=== PATIENT | male | born 1975 | race Caucasian/White ===

== ENCOUNTER 2020-01-02 07:58 | Emergency (ER) | payer BC, OTHER ==
[~2020-01-02] VITALS: Ht 170.2 cm; Wt 74.8 kg
--- OUTSIDE RECORDS SUMMARY | ~2020-01-02 | XMS | Encounter Summary ---
Demographics + + + | Address | [address] | | | [place] [address] | + + + | Home Phone | | + + + | Preferred Language | Unknown | + + + | Marital Status | | + + + | Christian Affiliation | Unknown | + + + | Race | Unknown | + + + | Ethnic Group | Unknown | + + + Author + + + | Author | [facility] | | | and [place] | + + + | Organization | [facility] | | | and [place] | + + + | Address | Unknown | + + + | Phone | Unavailable | + + + Support + + +---------+ + | Name | Relationship | Address | Phone | + + +---------+ + | Mariella Word | ECON | Unknown | | + + +---------+ + Care Team Providers + +------+ + | Care Loss Control Manager Name | Role | Phone | + +------+ + | Jeffery Anand DO | PCP | | + +------+ + Reason for Referral Evaluate & Treat (Routine) +--------+ + + + + + | Status | Reason | Specialty | Diagnoses / | Referred By | Referred To | | | | | Procedures | Contact | Contact | +--------+ + + + + + | Closed | Specialty | Physical | Diagnoses | Cheng, | Ant, | | | Services | Medicine and | DDD | Jeffery Das, | William Garcia MD | | | Required | Rehabilitatio | (degenerativ | DO [address] | [address] | | | | n | e disc | [address] | [address] [place] | | | | | disease), | [place], [place] | [place] | | | | | lumbar | [address] | [address] Phone: | | | | | | Phone: | [phone] | | | | | | [phone] | Fax: | | | | | | Fax: | [phone] | | | | | | [phone] | | +--------+ + + + + + + + | Scheduling Instructions | + + | Please send MRI and notes w/ referral | + + Reason for Visit + + + | Reason | Comments | + + + | Medication Refill | | + + + | Referral | | + + + Encounter Details +--------+--------+ + + + | Date | Type | Department | Care Team | Description | +--------+--------+ + + + | 04/29/ | Refill | [facility] | Jeffery Anand | Medication Refill; | | 2018 | | [facility] | E, DO [address] | Referral | | | | [facility] | [place], [place] | | | | | [address] [place], | [address] | | | | | [place] [address] | [phone] | | | | | [phone] | | | +--------+--------+ + + + Social History + +--------+ +--------+------+ | Tobacco Use | Types | Packs/Day | Years | Date | | | | | Used | | + +--------+ +--------+------+ | Light Tobacco Smoker | Cigars | | | | + +--------+ +--------+------+ + +---+---+---+ | Smokeless Tobacco: | | | | | Never Used | | | | + +---+---+---+ + + | Comments: Twice a week if that | + + + + +---------+ + | Alcohol Use | Drinks/Week | oz/Week | Comments | + + +---------+ + | No | | | Beer consumption | | | | | 6pk/wk, stopped | | | | | 01/2016 | + + +---------+ + + + + | Sex Assigned at | Date Recorded | | | | + + + | Not on file | | + + + + + + + | Job Start Date | Occupation | Industry | + + + + | Not on file | Not on file | Not on file | + + + + + + + + | Travel History | Travel Start | Travel End | + + + + + + | No recent travel history available. | + + documented as of this encounter Plan of Treatment + + +--------+ + + | Name | Type | Priori | Associated Diagnoses | Order Schedule | | | | ty | | | + + +--------+ + + | * [facility] | Outpatient | Routin | DDD (degenerative | Ordered: 04/29/2019 | | Physiatry - AMB | Referral | e | disc disease), | | | Referral | | | lumbar | | + + +--------+ + + documented as of this encounter Visit Diagnoses + + | Diagnosis | + + | DDD (degenerative disc disease), lumbar - Primary Degeneration of lumbar or | | lumbosacral intervertebral disc | + + documented in this encounter"
--- OUTSIDE RECORDS SUMMARY | ~2020-01-02 | XMS | Encounter Summary ---
Demographics + + + | Address | [address] | | | [place] [address] | + + + | Home Phone | | + + + | Preferred Language | Unknown | + + + | Marital Status | | + + + | Buddhism Affiliation | Unknown | + + + | Race | Unknown | + + + | Ethnic Group | Unknown | + + + Author + + + | Author | [facility] | | | and [place] | + + + | Organization | [facility] | | | and [...] Team Providers + +------+ + | Care President [place] Name | Role | Phone | + +------+ + | Jeffery Anand DO | PCP | | + +------+ + Reason for Visit + + + | Reason | Comments | + + + | Medication Refill | | + + + Encounter Details +--------+--------+ + + + | Date | Type | Department | Care Team | Description | +--------+--------+ + + + | 08/24/ | Refill | [facility] | Jeffery Anand | Medication Refill | | 2019 | | [facility] | E, DO [address] | | | | | [facility] CL[facility] | [place], [place] | | | | | [address] [place], | [address] | | | | | [place] [address] | [phone] | | | | | [phone] | | | +--------+--------+ + + + [...] as of this encounter Plan of Treatment Not on filedocumented as of this encounter Visit Diagnoses Not on filedocumented in this encounter"
--- OUTSIDE RECORDS SUMMARY | ~2020-01-02 | XMS | Clinical Summary ---
Demographics + + + | Address | [address] | | | [place] [address] | + + + | Home Phone | | + + + | Preferred Language | Unknown | + + + | Marital Status | | + + + | Restorationism Affiliation | Unknown | + + + | Race | Unknown | + + + | Ethnic Group | Unknown | + + + Author + + + | Author | [facility] | | | and [place] | + + + | Organization | [facility] | | | and [...] Team Providers + +------+ + | Care Coffee Brewer Name | Role | Phone | + +------+ + | Jeffery Anand DO | PCP | | + +------+ + Allergies + + + + + + | Active Allergy | Reactions | Severity | Noted | Comments | | | | | Date | | + + + + + + | Amoxicillin | Other (See Comments) | High | 04/04/20 | Suicidal ideation | | | | | 20 | and anger/Possible | | | | | | side effect when | | | | | | used with Gabapentin | + + + + + + | Uncoded | Other (See Comments) | | 04/09/20 | Flu Vaccine, 5-6 | | Nonscreenable | | | 18 | years ago felt like | | Allergen | | | | he had a bad flu | | | | | | within 1-2 days | + + + + + + Medications + + + +---------+------+------+-------+ | Medication | Sig | Dispensed | Refills | Star | End | Statu | | | | | | t | Date | s | | | | | | Date | | | + + + +---------+------+------+-------+ | DiphenhydrAMINE | Take by mouth as | | 0 | | | Activ | | HCl (BENADRYL | needed. | | | | | e | | ALLERGY PO) | | | | | | | + + + +---------+------+------+-------+ | Naproxen Sodium | Take by mouth. 1 | | 0 | | | Activ | | (ALEVE) 220 MG CAPS | tablet four times a | | | | | e | | | week | | | | | | + + + +---------+------+------+-------+ | Acetaminophen | Take by mouth as | | 0 | | | Activ | | (TYLENOL EXTRA | needed. | | | | | e | | STRENGTH PO) | | | | | | | + + + +---------+------+------+-------+ | meloxicam (MOBIC) | Take 1 tablet by | 30 | 1 | 03/1 | | Activ | | 15 mg | mouth Daily as | tablet | | 8/20 | | e | | tabletIndications: | needed for Pain. | | | 19 | | | | DDD (degenerative | | | | | | | | disc disease), | | | | | | | | lumbar | | | | | | | + + + +---------+------+------+-------+ | tiZANidine | Take 1 tablet by | 30 | 0 | 10/12 | | Activ | | (ZANAFLEX) 4 mg | mouth nightly as | tablet | | 8/20 | | e | | tabletIndications: | needed. | | | 19 | | | | DDD (degenerative | | | | | | | | disc disease), | | | | | | | | lumbar | | | | | | | + + + +---------+------+------+-------+ | gabapentin | Take 1 capsule by | 180 | 3 | 04/14 | | Activ | | (NEURONTIN) 100 mg | mouth 2 times daily. | capsule | | 6/20 | | e | | capsule | | | | 19 | | | + + + +---------+------+------+-------+ Active Problems + + + | Problem | Noted Date | + + + | Overanxious disorder | | + + + | Alcohol dependence in remission | | + + + Encounters +--------+ + + + + | Date | Type | Specialty | Care Team | Description | +--------+ + + + + | 01/01/ | Telephone | Primary Care | Jeffery Anand | Chest Pain | | 2019 | | | E, DO | | +--------+ + + + + from Last 3 Months Immunizations + + + + | Name | Administration Dates | Next Due | + + + + | HEP A, 2 DOSE | 08/08/2012 | | | (PED/ADOL) | | | + + + + | INFLUENZA PF 20 Y OR | 05/15/2018 | | | >,TRIVALENT | | | | RECOMBINANT | | | + + + + | INFLUENZA PF | 05/15/2018, 06/14/2016 | | | QUAD(PED/ADOL/ADULT) | | | | ,PSKT or VIAL | | | + + + + | TDAP, (ADOL/ADULT) | 01/01/2018, 01/06/2012 | | + + + + Family History + + +------+ + | Medical History | Relation | Name | Comments | + + +------+ + | Anxiety disorder | Father | | | + + +------+ + | Hypertension | Father | | | + + +------+ + | No known problems | Maternal | | | | | Grandfath | | | | | er | | | + + +------+ + | No known problems | Maternal | | | | | Grandmoth | | | | | er | | | + + +------+ + | No known problems | Mother | | | + + +------+ + | No known problems | Paternal | | | | | Grandfath | | | | | er | | | + + +------+ + | No known problems | Paternal | | | | | Grandmoth | | | | | er | | | + + +------+ + + +------+--------+ + | Relation | Name | Status | Comments | + +------+--------+ + | Father | | | | + +------+--------+ + | Maternal Grandfather | | | | + +------+--------+ + | Maternal Grandmother | | | | + +------+--------+ + | Mother | | | | + +------+--------+ + | Paternal Grandfather | | | | + +------+--------+ + | Paternal Grandmother | | | | + +------+--------+ + Social History + +--------+ +--------+------+ | Tobacco Use | Types | Packs/Day | Years | Date | | | | | Used | | + +--------+ +--------+------+ | Light Tobacco Smoker | Cigars | | | | + +--------+ +--------+------+ + +---+---+---+ | Smokeless Tobacco: | | | | | Never Used | | | | + +---+---+---+ + + | Tobacco Cessation: Ready to Quit: No; Counseling Given: Yes | | Comments: Twice a week if that | + + + + +---------+ + | Alcohol Use | Drinks/Week | oz/Week | Comments | + + +---------+ + | No | | | | + + +---------+ + + + [...] recent travel history available. | + + Last Filed Vital Signs + + + + + | Vital Sign | Reading | Time Taken | Comments | + + + + + | Blood Pressure | 130/70 | 05/16/2019 8:01 AM | | | | | PDT | | + + + + + | Pulse | 54 | 05/16/2019 8:01 AM | | | | | PDT | | + + + + + | Temperature | 37.1 C (98.7 F) | 04/09/2018 4:25 PM | | | | | PDT | | + + + + + | Respiratory Rate | 17 | 10/29/2018 3:35 PM | | | | | PDT | | + + + + + | Oxygen Saturation | 98% | 10/29/2018 3:35 PM | | | | | PDT | | + + + + + | Inhaled Oxygen | - | - | | | Concentration | | | | + + + + + | Weight | 74.5 kg (164 lb 3.9 | 05/16/2019 8:01 AM | | | | oz) | PDT | | + + + + + | Height | 165.1 cm (5' 5") | 05/16/2019 8:01 AM | | | | | PDT | | + + + + + | Body Mass Index | 27.33 | 05/16/2019 8:01 AM | | | | | PDT | | + + + + + Plan of Treatment + + + + + | Health Maintenance | Due Date | Last Done | Comments | + + + + + | Vaccine: | | | | | Pneumococcal 19-64 | 4 | | | | (1 of 1 - PPSV23) | | | | + + + + + | Primary Care | | 05/16/2019, 10/29/2018, | | | Outreach (Intense | 0 | 04/09/2018 | | | Risk) | | | | + + + + + | Vaccine: Influenza | | 05/15/2018, 05/15/2018, | | | (Season Ended) | 0 | 06/14/2016, Additional history | | | | | exists | | + + + + + | Vaccine: | | 01/01/2018, 01/06/2012 | | | Dtap/Tdap/Td (3 - | 8 | | | | Td) | | | | + + + + + Results Not on filefrom Last 3 Months Insurance + +--------+ +--------+ +---------+------+ | Payer | Benefi | Subscriber | Effect | Phone | Address | Type | | | t Plan | ID | willis | | | | | | / | | Dates | | | | | | Group | | | | | | + +--------+ +--------+ +---------+------+ | [place] | [id number] | 10/13/19 | [phone] | | [place] | | [place] | | 17-Pre | 9 | | | | | | | sent | | | | + +--------+ +--------+ +---------+------+ | BCBS | BCBS | [id number] | 10/13/19 | | | PPO | | | FEDERA | | 17-Pre | | | | | | L FEP | | sent | | | | + +--------+ +--------+ +---------+------+ | [employer] [facility] | PHP | [id number] | 08/14/19 | [phone] | | PPO | | PLAN | PEBB | | 19-Pre | 5 | | | | | STATEW | | sent | | | | | | MIHIR | | | | | | + +--------+ +--------+ +---------+------+ | [employer] [facility] | PHP | [id number] | 08/14/19 | [phone] | | PPO | | PLAN | PEBB | | 18-Pre | 5 | | | | | STATEW | | sent | | | | | | MIHIR | | | | | | + +--------+ +--------+ +---------+------+ + +--------+ +--------+ + + | Guarantor Name | Accoun | Relation to | Date | Phone | Billing Address | | | t Type | Patient | of | | | | | | | | | | + +--------+ +--------+ + + | Gary Sauceda | Person | Self | [birth year] | [address] | | | al/Fam | | [phone] | [phone] | [place] [address] | | | renée | | | 5 (Home) | | + +--------+ +--------+ + + | KomalGary | Person | Self | [birth year] | | [address] | | | al/Fam | | [phone] | [phone] | [place] [address] | | | renée | | | 5 (Home) | | + +--------+ +--------+ + + Advance Directives + + + + + | Type | Date Recorded | Patient | Explanation | | | | Cheesemaking Laborer | | + + + + + | Power of | | | | | Mortgage Loan Processor | | | | + + + + + | Advance | 04/09/2018 4:11 | | | | Directive | PM | | | + + + + +
--- OUTSIDE RECORDS SUMMARY | ~2020-01-02 | XMS | Encounter Summary ---
Demographics + + + | Address | [address] | | | [place] [address] | + + + | Home Phone | | + + + | Preferred Language | Unknown | + + + | Marital Status | | + + + | Zoroastrianism Affiliation | Unknown | + + + | Race | Unknown | + + + | Ethnic Group | Unknown | + + + Author + + + | Author | [facility] | | | and [place] | + + + | Organization | [facility] | | | and [...] Team Providers + +------+ + | Care Mysql Database Developer Name | Role | Phone | + +------+ + | Jeffery Anand DO | PCP | | + +------+ + Reason for Referral Self-referral (Routine) +--------+ + + + + + | Status | Reason | Specialty | Diagnoses / | Referred By | Referred To | | | | | Procedures | Contact | Contact | +--------+ + + + + + | Closed | Specialty | Physical | Diagnoses | [facility] | | | Services | Therapy | DDD | Jeffery Das, | HOSPITAL | | | Required | | (degenerativ | DO [address] | | | | | e disc | [address] | [place] | | | | | disease), | [place], [place] | [place], [place] | | | | | lumbar | [address] | [address] | | | | | | Phone: | Phone: | | | | | | [phone] | [phone] | | | | | | Fax: | Fax: | | | | | | [phone] | [phone] | +--------+ + + + + + Reason for Visit +---------+ + | Reason | Comments | +---------+ + | Results | | +---------+ + Encounter Details +--------+ + + + + | Date | Type | Department | Care Team | Description | +--------+ + + + + | 11/19/ | Telephone | [facility] | Fatuma Nolan CC | Results | | 2019 | | [facility] | [facility] | | | | | MEDICAL CLIN[facility] [address] | | | | | | [address] [facility], | | | | | | [place] [address] | | | | | | [phone] | | | +--------+ + + + + Social History + +--------+ [...] | + + +--------+ + + | Physical Therapy - | Outpatient | Routin | DDD (degenerative | Ordered: 11/20/2018 | | Ambulatory Referral | Referral | e | disc disease), | | | | | | lumbar | | + + +--------+ + + documented as of this encounter Visit Diagnoses + + | Diagnosis | + + | DDD (degenerative disc disease), lumbar - Primary Degeneration of lumbar or | | lumbosacral intervertebral disc | + + documented in this encounter"
--- OUTSIDE RECORDS SUMMARY | ~2020-01-02 | XMS | Encounter Summary ---
Demographics + + + | Address | [address] | | | [place] [address] | + + + | Home Phone | | + + + | Preferred Language | Unknown | + + + | Marital Status | | + + + | Baptist Affiliation | Unknown | + + + | Race | Unknown | + + + | Ethnic Group | Unknown | + + + Author + + + | Author | [facility] | | | and [place] | + + + | Organization | [facility] | | | and [...] Team Providers + +------+ + | Care Drier Tender Naphthalene Name | Role | Phone | + +------+ + | Jeffery Anand DO | PCP | | + +------+ + Encounter Details +--------+ + + + + | Date | Type | Department | Care Team | Description | +--------+ + + + + | 04/04/ | Abstract | [facility] | Jeffery Anand | | | 2018 | | [facility] | E, DO [address] | | | | | MEDICAL CL[facility] [address] | [place], [place] | | | | | [address] [place], | [address] | | | | | [place] [address] | [phone] | | | | | [phone] | | | +--------+ + + + + Social History + +-------+ +--------+------+ | Tobacco Use | Types | Packs/Day | Years | Date | | | | | Used | | + +-------+ +--------+------+ | Never Smoker | | | | | + +-------+ +--------+------+ + +---+---+---+ | Smokeless Tobacco: | | | | | Never Used | | | | + +---+---+---+ + + +---------+ + | Alcohol Use [...]
--- OUTSIDE RECORDS SUMMARY | ~2020-01-02 | XMS | Encounter Summary ---
Demographics + + + | Address | [address] | | | [place] [address] | + + + | Home Phone | | + + + | Preferred Language | Unknown | + + + | Marital Status | | + + + | Mandaeism Affiliation | Unknown | + + + | Race | Unknown | + + + | Ethnic Group | Unknown | + + + Author + + + | Author | [facility] | | | and [place] | + + + | Organization | [facility] | | | and [...] Team Providers + +------+ + | Care Court Advocate Name | Role | Phone | + [...] Description | +--------+--------+ + + + | 03/11/ | Refill | [facility] | Jeffery Anand | Medication Refill | | 2019 | | [facility] | E, DO [address] | | | | | MEDICAL CL[facility] [address] | [place], [place] | | | | | [address] [place], | [address] | | | | | [place] [address] | [phone] | | | | | [phone] | | | +--------+--------+ + + + [...]
--- OUTSIDE RECORDS SUMMARY | ~2020-01-02 | XMS | Encounter Summary ---
Demographics + + + | Address | [address] | | | [place] [address] | + + + | Home Phone | | + + + | Preferred Language | Unknown | + + + | Marital Status | | + + + | Uatsdin Affiliation | Unknown | + + + | Race | Unknown | + + + | Ethnic Group | Unknown | + + + Author + + + | Author | [facility] | | | and [place] | + + + | Organization | [facility] | | | [...] Team Providers + +------+ + | Care Residential Program Manager Name | Role | Phone | + +------+ + | Jeffery Anand DO | PCP | | + +------+ + Encounter Details +--------+ + + + + | Date | Type | Department | Care Team | Description | +--------+ + + + + | 05/02/ | Imaging | [facility] | Provider, | | | 2019 | Exam | [facility] | [address] | | | | | IM[address] | [address] | | | | | [place] | [place] [address] | | | | | [place] [address] | | | | | | [phone] | | | +--------+ + + + [...] Not on filedocumented as of this encounter Procedures + +--------+ + + + | Procedure Name | Priori | Date/Time | Associated Diagnosis | Comments | | | ty | | | | + +--------+ + + + | XR LUMBAR SPINE 4 + | Routin | 09/03/2018 | | Results for this | | VW | e | 12:00 AM | | procedure are in the | | | | PST | | results section. | + +--------+ + + + documented in this encounter Results XR Lumbar Spine 4 + Vw (09/03/2018 12:00 AM PST) + + | Specimen | + + | | + + + + + | Narrative | Performed At | + + + | External films for comparison only | [facility] | | | | | No results will be in the chart. | | + + + + +---------+ + + | Performing | Address | City/State/Zipcode | Phone Number | | Organization | | | | + +---------+ + + | [facility] | | | | + +---------+ + + documented in this encounter Visit Diagnoses Not on filedocumented in this encounter"
--- OUTSIDE RECORDS SUMMARY | ~2020-01-02 | XMS | Encounter Summary ---
Demographics + + + | Address | [address] | | | [place] [address] | + + + | Home Phone | | + + + | Preferred Language | Unknown | + + + | Marital Status | | + + + | Lutheran Affiliation | Unknown | + + + | Race | Unknown | + + + | Ethnic Group | Unknown | + + + Author + + + | Author | [facility] | | | and [place] | + + + | Organization | [facility] | | | and [...] Team Providers + +------+ + | Care Rock Mason Name | Role | Phone | + +------+ + | Jeffery Anand DO | PCP | | + +------+ + Reason for Visit + + + | Reason | Comments | + + + | Referral | Needs a new referral for physical therapy | + + + Encounter Details +--------+ + + + + | Date | Type | Department | Care Team | Description | +--------+ + + + + | 01/09/ | Telephone | [facility] | Jeffery Anand | Referral (Needs a | | 2019 | | [facility] | E, DO [address] | new referral for | | | | MEDICAL CL[facility] [address] | [place], [place] | physical therapy) | | | | [address] [place], | [address] | | | | | [place] [address] | [phone] | | | | | [phone] | | | +--------+ + + + [...]
--- OUTSIDE RECORDS SUMMARY | ~2020-01-02 | XMS | Encounter Summary ---
Demographics + + + | Address | [address] | | | [place] [address] | + + + | Home Phone | | + + + | Preferred Language | Unknown | + + + | Marital Status | | + + + | Taoism Affiliation | Unknown | + + + | Race | Unknown | + + + | Ethnic Group | Unknown | + + + Author + + + | Author | [facility] | | | and [place] | + + + | Organization | [facility] | | | [...] Team Providers + +------+ + | Care Mandarin Tutor Name | Role | Phone | + [...] | [facility] CTR [facility] | [address] | | | | | IMAGING [address] | [address] | | | | | [place] | [place] [address] | | | | | [place] [address] | | | | | | [phone] | | | +--------+ + + + [...] | + +--------+ + + + | MRI LUMBAR SPINE WO | Routin | 11/16/2018 | | Results for this | | CONTRAST | e | 12:00 AM | | procedure are in the | | | | PDT | | results section. | + +--------+ + + + documented in this encounter Results MRI Lumbar Spine wo Contrast (11/16/2018 12:00 AM PDT) + + | Specimen | + + [...]
--- OUTSIDE RECORDS SUMMARY | ~2020-01-02 | XMS | Encounter Summary ---
Demographics + + + | Address | [address] | | | [place] [address] | + + + | Home Phone | | + + + | Preferred Language | Unknown | + + + | Marital Status | | + + + | Anabaptist Affiliation | Unknown | + + + [...] Team Providers + +------+ + | Care Produce Wrapper Name | Role | Phone | + [...] | | [address] [place], | [address] | | | | | [place] [address] | [phone] | | | | | [phone] | | | +--------+ + + + [...]
--- OUTSIDE RECORDS SUMMARY | ~2020-01-02 | XMS | Encounter Summary ---
Demographics + + + | Address | [address] | | | [place] [address] | + + + | Home Phone | | + + + | Preferred Language | Unknown | + + + | Marital Status | | + + + | Yazidi Affiliation | Unknown | + + + | Race | Unknown | + + + | Ethnic Group | Unknown | + + + Author + + + | Author | [facility] | | | and [place] | + + + | Organization | [facility] | | [...] Team Providers + +------+ + | Care Technical Solutions Engineer Name | Role | Phone | + [...] | [facility] | [address] | | | | | IMAGING [address] | [address] | | | | | [place] | [place] [address] | | | | | [place] [address] | | | | | | [phone] | | | +--------+ + + + [...]
--- OUTSIDE RECORDS SUMMARY | ~2020-01-02 | XMS | Encounter Summary ---
Demographics + + + | Address | [address] | | | [place] [address] | + + + | Home Phone | | + + + | Preferred Language | Unknown | + + + | Marital Status | | + + + | Confucianist Affiliation | Unknown | + + + | Race | Unknown | + + + | Ethnic Group | Unknown | + + + Author + + + | Author | [facility] | | | and [place] | + + + | Organization | [facility] | | [...] Team Providers + +------+ + | Care Commissioner Of Conciliation Name | Role | Phone | + +------+ + | Jeffery Anand DO | PCP | | + +------+ + Reason for Visit + + + | Reason | Comments | + + + | Establish Care | Re-establish care | + + + | Medication Reaction | Discuss reaction to Gabapentin with use of antibiotics and OTC | | | allergy drugs | + + + Encounter Details +--------+---------+ + + + | Date | Type | Department | Care Team | Description | +--------+---------+ + + + | 04/09/ | Office | [facility] | Jeffery Anand | Overanxious disorder | | 2018 | Visit | [facility] | E, DO [address] | (Primary Dx); | | | | [facility] | [place] | Alcohol dependence | | | [address] [place], | [address] | in remission (HCC) | | | | [place] [address] | [phone] | | | | | [phone] | | | +--------+---------+ + + + Social History + +--------+ [...] + + documented as of this encounter Last Filed Vital Signs + + + + + | Vital Sign | Reading | Time Taken | Comments | + + + + + | Blood Pressure | 138/82 | 04/09/2018 4:25 PM | | | | | PDT | | + + + + + | Pulse | 57 | 04/09/2018 4:25 PM | | | | | PDT | | + + + + + | Temperature | 37.1 C (98.7 F) | 04/09/2018 4:25 PM | | | | | PDT | | + + + + + | Respiratory Rate | 21 | 04/09/2018 4:25 PM | | | | | PDT | | + + + + + | Oxygen Saturation | 98% | 04/09/2018 4:25 PM | | | | | PDT | | + + + + + | Inhaled Oxygen | - | - | | | Concentration | | | | + + + + + | Weight | 72.6 kg (160 lb) | 04/09/2018 4:25 PM | | | | | PDT | | + + + + + | Height | 165.1 cm (5' 5") | 04/09/2018 4:25 PM | | | | | PDT | | + + + + + | Body Mass Index | 26.63 | 04/09/2018 4:25 PM | | | | | PDT | | + + + + + documented in this encounter Progress Notes Jeffery Anand DO - 04/09/2018 4:20 PM PDT Patient ID: Gary Sauceda is a 42 y.o. year old male Chief Complaint: Chief Complaint Patient presents with Establish Care Re-establish care Medication Reaction Discuss reaction to Gabapentin with use of antibiotics and OTC allergy drugs Overanxious disorder (Primary) Alcohol dependence in remission (HCC) Plan: Continue current plan, no change in meds. Continue with psychology consult with Dr Ferrell Reviewed labs in detail (wln) Call if any problems. Subjective: Gary Sauceda presents today with Chief Complaint of: Re-establish care. Discuss reaction to Ga bapentin with use of antibiotics and OTC allergy drugs. HPI Gary is doing well. Continues to not use any alcohol, has ongoing psych with Dr Ferrell, and work is going well. He is going to take karate with his daughter. Recent back country backpacking trip which we nt well. Current Outpatient Prescriptions Medication Sig Dispense Refill DiphenhydrAMINE HCl (BENADRYL ALLERGY PO) Take by mouth as needed. gabapentin (NEURONTIN) 100 mg capsule Take 100 mg by mouth 2 times daily. melatonin 3 mg TABS Take 3 mg by mouth nightly as needed. No current facility-administered medications for this visit. Patient Active Problem List Diagnosis Overanxious disorder Alcohol dependence in remission Family History Problem Relation Age of Onset Anxiety disorder Father Hypertension Father Social History Social History Marital status: Spouse name: N/A Number of children: N/A Years of education: N/A Occupational History Not on file. Social History Main Topics Smoking status: Light Tobacco Smoker Types: Cigars Smokeless tobacco: Never Used Comment: Twice a week if that Alcohol use No Comment: Beer consumption 6pk/wk, stopped 01/2016 Drug use: Yes Types: Marijuana Comment: By inhalation Sexual activity: Not on file Other Topics Concern Not on file Social History Narrative No narrative on file Review of Systems Constitutional: Negative for fatigue and fever. Respiratory: Negative for cough, chest tightness, shortness of breath and wheezing. Cardiovascular: Negative for chest pain and palpitations. Gastrointestinal: Negative for abdominal pain, nausea and vomiting. Musculoskeletal: Negative for gait problem and myalgias. Neurological: Negative for dizziness, syncope and headaches. Psychiatric/Behavioral: The patient is not nervous/anxious. Objective: Vitals: BP 138/82 | Pulse 57 | Temp 37.1 C (98.7 F) (Oral) | Resp 21 | Ht 1.651 m (5' 5") | Wt 72.6 kg (160 lb) | SpO2 98% | BMI 26.63 kg/m Physical Exam Constitutional: He appears well-developed and well-nourished. HENT: Head: Atraumatic. Eyes: Pupils are equal, round, and reactive to light. EOM are normal. Cardiovascular: Normal rate, regular rhythm and normal heart sounds. Pulmonary/Chest: Effort normal and breath sounds normal. No respiratory distress. Abdominal: Bowel sounds are normal. Lymphadenopathy: He has no cervical adenopathy. Neurological: He is alert. Skin: Skin is warm and dry. Psychiatric: He has a normal mood and affect. Jeffery Anand DO [place], November M, [facility] - 04/09/2018 4:20 PM PDTPasaul Word presents today with Chief Comp laint of: Re-establish care. Discuss reaction to Gabapentin with use of antibiotics and OTC allergy drugs. Current medications verified with her at time of visit. Pt currently shows no s/s of distress, shortness of breath. Vital signs: BP 138/82 | Pulse 57 | Temp 37.1 C (98.7 F) (Oral) | Resp 21 | Ht 1.65 1 m (5' 5") | Wt 72.6 kg (160 lb) | SpO2 98% | BMI 26.63 kg/m Labs Obtained per protocol: None. Verbal Report given to: DO. Fatuma Abad CC CMA documented in this encounter Plan of Treatment Not on filedocumented as of this encounter Visit Diagnoses + + | Diagnosis | + + | Overanxious disorder - Primary Overanxious disorder specific to childhood and | | adolescence | + + | Alcohol dependence in remission (HCC) Other and unspecified alcohol dependence, in | | remission | + + documented in this encounter
--- OUTSIDE RECORDS SUMMARY | ~2020-01-02 | XMS | Encounter Summary ---
Demographics + + + | Address | [address] | | | [place] [address] | + + + | Home Phone | | + + + | Preferred Language | Unknown | + + + | Marital Status | | + + + | Shinto Affiliation | Unknown | + + + | Race | Unknown | + + + | Ethnic Group | Unknown | + + + Author + + + | Author | [facility] | | | and [place] | + + + | Organization | [facility] | | | [...] Team Providers + +------+ + | Care Shoulder Puncher Name | Role | Phone | + +------+ + | Jeffery Anand DO | PCP | | + +------+ + Encounter Details +--------+ + + + + | Date | Type | Department | Care Team | Description | +--------+ + + + + | 05/14/ | Abstract | [facility] | Provider, | | | 2019 | | PHYSIATRY [address] | [address] | | | | | [address] | [address] | | | | | [place] | [place] [address] | | | | | [address] | | | | | | [phone] | | | +--------+ + + + [...]
--- OUTSIDE RECORDS SUMMARY | ~2020-01-02 | XMS | Encounter Summary ---
Demographics + + + | Address | [address] | | | [place] [address] | + + + | Home Phone | | + + + | Preferred Language | Unknown | + + + | Marital Status | | + + + | Zoroastrianism Affiliation | Unknown | + + + | Race | Unknown | + + + | Ethnic Group | Unknown | + + + Author + + + | Author | [facility] | | | and [place] | + + + | Organization | [facility] | | | [...] Team Providers + +------+ + | Care Director Of Institutional Research Name | Role | Phone | + [...] Specialty | Physical | Diagnoses | Aristeo Moeller | | | Services | Therapy | Lumbar | Maria Ines | [facility] | | | Required | | radiculopath | VANCE Cruz | PHYSICAL | | | | | y [place] [facility] | [address] | [address]APY [address] | | | | | lumbar disc | [address] | [address] | | | | | without | [address] | [place], [place] | | | | | myelopathy | [facility] [address] | [address] | | | | | | [place], | Phone: | | | | | | [place] [address] | [phone] | | | | | | Phone: | Fax: | | | | | | [phone] | [phone] | | | | | | Fax: | | | | | | | [phone] | | +--------+ + + + + + Reason for Visit + + + | Reason | Comments | + + + | New Patient | DDD, lumbar | + + + Evaluate & Treat (Routine) +--------+ + + [...] | | disease), | [place], [place] | [place], [place] | | | | | lumbar | [address] | [address] Phone: | | | | | | Phone: | [phone] | | | | | | [phone] | Fax: | | | | | | Fax: | [phone] | | | | | | [phone] | | +--------+ + + + + + Encounter Details +--------+---------+ + + + | Date | Type | Department | Care Team | Description | +--------+---------+ + + + | 05/16/ | Office | [facility] [place] | Maria Ines Moeller | Lumbar radiculopathy | | 2019 | Visit | PHYSIATRY [address] | Nancy, PA-C [address] | (Primary Dx); [place] | | | | [address] | [address] | of lumbar disc | | | | [place], [place] | [address] [place], [place] | without myelopathy | | | | [address] | [address] | | | | | [phone] | | | +--------+---------+ + + + [...] + + + + | Temperature | - | - | | + + + + + | Respiratory Rate | - | - | | + + + + + | Oxygen Saturation | - | - | | + + + + + [...] + + + documented in this encounter Patient Instructions Patient Instructions Maria Ines Moeller PA-C - 05/16/2019 8:00 AM PDT1. PT orders are being sent to [facility]. 2. If her pain escalates please call the office and we will try to authorize an epidural s teroid injection. I have included information below for your review. Lumbar Epidural Injection: Your Procedure A lumbar epidural injection is an outpatient procedure. It s often done in a hospital or an outpatient surgery center. Before your shot, your healthcare provider willtell you how to get ready. Getting ready You may need to do the following: Give thehealthcare providera list of all medicines you take, such as aspirin and ant i-inflammatories. (You may need to stop taking some of them before the injection.) You may be asked not toeat or drink anything for several hours before check-in. Arrange for an adult friend or family member to drive you home afterward. Bring any requested X-ray, CT, or MRI images on the day of the procedure. During the procedure The injection takes just a few minutes. But extra time is needed to get ready. You may be g iven medicine beforehand to help you relax: In some cases, monitoring devices may be attached to your chest or side. These devices m easure your heart rate, breathing, and blood pressure. You lie on your stomach or side, depending on where theshot will be given. Your back i s cleaned and may be covered with sterile towels. Medicine is given to numb the skin near the place of the shot. If X-ray imaging (fluoroscopy) is to be used, a contrast dye may be injected into your back. This helps yourhealthcare providerget a better image. A local anesthetic (for numbing), steroids (for reducing inflammation), or both are inje cted into the epidural space. The procedure is very safe. But there is a very small risk of infection or local reaction a fterward. Seek medical care right away if you have: Increasing pain Headaches (especially when standing up) Redness Fever Symptoms of infection After the procedure You ll spendtime in a recovery area after the procedure. Before going home, you may be asked to fill out another survey about your pain. Date Last Reviewed: 01/12/201819998686-0579 [employer]. [address] [place] [address]. All righ ts reserved. This information is not intended as a substitute for professional medical care. Always follow your healthcare professional's instructions. documented in this encounter Progress Notes Maria Ines Moeller PA-C - 05/16/2019 8:00 AM PDTFormatting of this note might be diffe rent from the original. Paola Moeller PA-C [address] [facility] [place] [address] PHONE: FAX: PHYSIATRY HISTORY AND PHYSICAL EXAMINATION CHIEF COMPLAINT: Chief Complaint Patient presents with New Patient DDD, lumbar HISTORY OF PRESENT ILLNESS: The patient is a 43 y.o. male with the complaint of back sympt oms that began Jun 2018. The patient describes symptom onset following pulling toy chest [facility]. The symptoms have been gradually worsening He rates the pain as mild, moderate, and severe depending upon motion/activity. His curren t pain is rated a 1 2/10. His pain prior to pa 2019 with 8/10 . The symptoms are daily, c ontinuous. He describes the pain as aching, dull, numbing and sharp. The patient describes leg symptoms that occur on left side. The leg symptoms account for g reater than or equal to 50% of his symptoms. The leg symptoms are constant and the symptoms travels from the left low back into left quadracept. The patient also describes cramping, tight, and tearing. The patient does not report any change in bowel or bladder function recently. His symptoms improve with movement of stretching and walking. His symptoms worsen with bending and twisting. He has tried NSAIDS and muscle relaxers. Patient has not had physical therapy for this. . PAST MEDICAL HISTORY: Past Medical History: Diagnosis Date Alcohol dependence in remission ([facility]) DDD (degenerative disc disease), lumbar Overanxious disorder PAST SURGICAL HISTORY: Past Surgical History: Procedure Laterality Date WISDOM TOOTH EXTRACTION CURRENT MEDICATIONS: Current Outpatient Medications Medication Sig Dispense Refill Acetaminophen (TYLENOL EXTRA STRENGTH PO) Take by mouth as needed. DiphenhydrAMINE HCl (BENADRYL ALLERGY PO) Take by mouth as needed. gabapentin (NEURONTIN) 100 mg capsule Take 1 capsule by mouth 2 times daily. 180 capsul e 3 meloxicam (MOBIC) 15 mg tablet Take 1 tablet by mouth Daily as needed for Pain. 30 tabl et 1 Naproxen Sodium (ALEVE) 220 MG CAPS Take by mouth. 1 tablet four times a week tiZANidine (ZANAFLEX) 4 mg tablet Take 1 tablet by mouth nightly as needed. 30 tablet 0 No current facility-administered medications for this visit. ALLERGIES: Allergies Allergen Reactions Amoxicillin Other (See Comments) Suicidal ideation and anger/Possible side effect when used with Gabapentin Uncoded Nonscreenable Allergen Other (See Comments) Flu Vaccine, 5-6 years ago felt like he had a bad flu within 1-2 days SOCIAL HISTORY: The patient reports that he has been smoking cigars. He has never used smokeless tobacco. He reports that he has current or past drug history. Drug: Marijuana. He reports that he do es not drink alcohol. FAMILY HISTORY: Family History Problem Relation Age of Onset Anxiety disorder Father Hypertension Father No known problems Mother No known problems Maternal Grandmother No known problems Maternal Grandfather No known problems Paternal Grandmother No known problems Paternal Grandfather REVIEW OF SYSTEMS: GENERALLY: No fever, no night sweats, no anemia, no fatigue, no recent profound weight ch anges. EYES: No eye problems, no impaired sight, no use of corrective lenses, no eye injury, no d ouble vision, no transient blindness. EARS, NOSE, AND THROAT: No changes in taste or smell, no hearing difficulty, no ringing in the ears, no ear drainage, no ear injury, no dizziness, no voice changes, no difficulty swa llowing, no significant snoring, no sleep apnea/CPAP, no sinus problems, no major dental wor k. NEUROLOGICALLY: Please see the review of systems discussed above in the history of present illness. PSYCHIATRIC: No depression, no difficulty sleeping, no anxiety, no bipolar disorder. CARDIOVASCULAR: No heart attacks, no heart murmur, no heart fluttering, no chest pain, no ankle swelling. LUNG DISEASE: No shortness of breath, no cough, no tuberculosis, no bloody cough, no asthm a, no emphysema/COPD. GASTROINTESTINAL: No bowel disease, no nausea or vomiting, no rectal bleeding, no constipa tion, no fecal stool incontinence, no liver/gallbladder disease, no abdominal pain, no ulcer s. KIDNEY DISEASE: No urinary frequency, no painful or difficult urination, no urinary incont inence, no bladder problems, no impotence. ENDOCRINE: No diabetes, no thyroid disease, no osteopenia or osteoporosis, no breast drain age. SKIN: No breast lumps, no skin disease or skin changes, no rashes/itches. HEMATOLOGIC/LYMPHATIC: No enlarged lymph nodes, no easy or unusual bleeding, no personal h istory of cancer. RHEUMATOLOGIC: No joint pain/arthritis, no rheumatoid arthritis. PHYSICAL EXAMINATION: Blood pressure 130/70, pulse 54, height 1.651 m (5' 5"), weight 74.5 kg (164 lb 3.9 oz). David dy mass index is 27.33 kg/m. GENERAL: Gary Sauceda is in no acute distress with unlabored respirations. He does not appear uncomfortable throughout the exam today. HEENT: Head: Normocephalic/atraumatic with no areas of recent trauma. Eyes: Normal sclerae without icterus. Ears: No drainage or tenderness. Nasopharynx: Clear without drainage. Oropharynx: Clear without erythema. NECK (ANTERIOR): Supple and without palpable masses. CHEST: Unlabored respirations HEART: No lower extremity edema ABDOMEN: Soft, non-tender, non-distended, and without palpable masses. The patient is not obese. NEUROLOGICAL: The patient is awake, alert, and oriented to time, place, person. He follows simple and complex commands. His speech is fluent. He comprehends speech well. He has no apparent deficits with short or moth exterminator memory. Cranial nerves 2-12 appear grossly intact. Sensory exam does not show diminished sensation to light touch in the bilateral lower extr emities. EXTREMITIES: No cyanosis, clubbing, or edema. Distal pulses are palpable. PHYSICAL EXAM: MENTAL STATUS: He is awake, alert, and oriented. He follows simple and complex commands. His speech is fluent, he comprehends speech well, and he repeats well. He has no apparent deficits with short or moth exterminator memory. CRANIAL NERVES: II: Acuity is intact. Johns are full to confrontation. III, IV, : The pupils are reactive. Extraocular movements are intact. No ptosis is note d. V: Facial sensation is intact and symmetric. VII: Facial movements are symmetric. VIII: Hearing is intact bilaterally. IX, X: The uvula and palate move appropriately. XI: Shrug is equal bilaterally. XII: Tongue protrusion is midline. MOTOR EXAM: (5 IS NORMAL) * Indicates pain limited MUSCLE/ MOVEMENT: RIGHT LEFT Hip Flexion 5 5 Hip Extension 5 5 Knee Flexion 5 5 Knee Extension 5 5 Dorsiflexion 5 4+ Extensor Hallicus Longus 5 4+ Plantarflexion 5 5 SENSORY EXAM: Sensory exam shows no diminished sensation to light touch or pain throughout the upper and lower extremities. REFLEXES: (2 OR 2+ IS NORMAL) REFLEX: RIGHT LEFT BICEPS * all reflexes in upper and lower extremities were brisk but symmetrical 2 2 BRACHIORADIALIS 2 2 TRICEPS 2 2 PATELLAR 2 2 ACHILLES 2 2 ANTON'S mildly positive but not reproducible ABSENT GAIT: Gait is steady. Patient is able to demonstrate tiptoe and heel walk without difficulty PERIPHERAL NERVE/MISC: Focal tenderness to palpation is elicited over left SI joint. Straight leg raise is negative bilaterally. Sit slump positive left lower extremity. Flex's test of the hips is negative bilaterally. TEST AND RADIOGRAPHIC REVIEW: His imaging was reviewed in detail today during the visit. The MRI from 11/16/2018 shows L4- 5 broad-based disc bulge with annular tear causing moderately severe central stenosis emergi ng left S1 nerve root appears somewhat swollen. The L4 nerves exit without contact. Lumbar x-rays from 09/03/2018 shows no major instability. ASSESSMENT: NEUROSURGICAL DIAGNOSES: Encounter Diagnoses Name Primary? Lumbar radiculopathy Yes Bulge of lumbar disc without myelopathy GENERAL DIAGNOSES: Past Medical History: Diagnosis Date Alcohol dependence in remission (HCC) DDD (degenerative disc disease), lumbar Overanxious disorder PLAN: Gary Sauceda presented today, and it was a pleasure seeing this patient and assessing his prob lems. Patient is a 43-year-old presenting with acute pain beginning June 2018 that last ed at a 8/10 pain till December 2018. He presents today with pain that has subsided down to 09/23. 1) Today we discussed the patient's differential diagnosis with the likely primary issue be ing LUMBAR RADICULOPATHY. Patient's description of symptoms, physical exam, and imaging sugg est this diagnosis at this time. 2) I counseled patient on treatment options which included conservative self management usi ng OTC NSAIDs/Ice and heat packs, physical therapy, prescription medications, epidural stero id injection, neuromodulation therapies, as well as possible surgical intervention. 3) Imaging: As descibed above in radiology review. 4) The patient has had significant conservative care including medications (NSAIDS and narc otics), PT (multiple sessions over the years) and personal carer. Unfortunately Gary Sauceda continues to have significant discomfort. It appears to me that the pain is primarily comi ng from large L4-5 disc herniation which appears to be contacting the left L5 nerve. For now we have agreed to proceed with physical therapy for additional conservative care and to increase his activity level. I did feel that Gary Sauceda would be a good candidate for interventional procedures and I offered a TFESI left L4-5 and left L5-S1 to be done if his symptoms progress. 5) Patient will follow up with me after physical therapy if his symptoms progress. 6) If current treatment plan is insufficient for symptom relief we could try the above-ment ioned TFESI as the next therapy option. I spent 30 minutes in visit with Gary Sauceda today with the majority of time spent counsellin g the patient on his diagnosis, options for his care, and coordinating his care. 05/16/19 ELECTRONICALLY SIGNED BY: Paola Moeller PA-C, 05/16/2019 10:32 documented in this encounter Plan of Treatment + + +--------+ + + | Name | Type | Priori | Associated Diagnoses | Order Schedule | | | | ty | | | + + +--------+ + + | AMB REFERRAL TO [facility] | Outpatient | Routin | Lumbar | Ordered: 05/16/2019 | | PHYSICAL THERAPY | Referral | e | radiculopathy Bulge | | | | | | of lumbar disc | | | | | | without myelopathy | | + + +--------+ + + documented as of this encounter Visit Diagnoses + + | Diagnosis | + + | Lumbar radiculopathy - Primary Thoracic or lumbosacral neuritis or radiculitis, | | unspecified | + + | Bulge of lumbar disc without myelopathy Displacement of lumbar intervertebral disc | | without myelopathy | + + documented in this encounter
--- OUTSIDE RECORDS SUMMARY | ~2020-01-02 | XMS | Clinical Summary ---
Demographics + + + | Address | [address] | | | [place] [address] | + + + | Home Phone [...] Team Providers + +------+ + | Care Marketing Reporting Analyst Name | Role | Phone | + [...] +---------+------+ | [place] | [place] | [id number] | 10/13/19 | [phone] | | [place] | | | [place] | | 17-Pre | 9 | | | | | | | sent | | | | + +--------+ +--------+ +---------+------+ | BCBS | BCBS | [id number] | 10/13/19 | | | PPO | | | FEDERA | | 17-Pre | | | | | | L FEP | | sent | | | | + +--------+ +--------+ +---------+------+ | [facility] | PHP | [id number] | 08/14/19 | [phone] | | PPO | | PLAN | PEBB | | 19-Pre | 5 | | | | | STATEW | | sent | | | | | | MIHIR | | | | | | + +--------+ +--------+ +---------+------+ | [facility] | PHP | [id number] | 08/14/19 | [phone] | | PPO | | PLAN | [...] | Self | [birth year] | | [address] | | | al/Fam | | [phone] | [phone] | [place] [address] | | | renée | | | 5 (Home) | | + +--------+ +--------+ + + | KomalGary | Person | Self | [birth year] | | [address] | | | al/Fam | | 1975 | [phone] | [place] [address] | | | renée | | | 5 (Home) | | + +--------+ +--------+ + + Advance Directives + + + + + | Type | Date Recorded | Patient | Explanation | | | | Geophysical Operator | | + + + + + | Power of | | | | | Mat Repairer | | | | + + + + + | Advance | 04/09/2018 4:11 | | | | Directive | PM | | | + + + + +
--- OUTSIDE RECORDS SUMMARY | ~2020-01-02 | XMS | Encounter Summary ---
Demographics + + + | Address | [address] | | | [place] [address] | + + + | Home Phone | | + + + | Preferred Language | Unknown | + + + | Marital Status | | + + + | Church Affiliation | Unknown | + + + | Race | Unknown | + + + | Ethnic Group | Unknown | + + + Author + + + | Author | [facility] | | | and [place] | + + + | Organization | [facility] | | | and [...] Team Providers + +------+ + | Care Inspector Semiconductor Wafer Name | Role | Phone | + +------+ + | Jeffery Anand DO | PCP | | + +------+ + Reason for Visit + + + | Reason | Comments | + + + | Chest Pain | | + + + Encounter Details +--------+ + + + + | Date | Type | Department | Care Team | Description | +--------+ + + + + | 01/01/ | Telephone | [facility] | Jeffery Anand | Chest Pain | | 2019 | | [facility] | E, DO [address] | | | | | MEDICAL CL[facility] [address] | [place], [place] | | | | | [address] [place], | [address] | | | | | [place] [address] | [phone] | | | | | [phone] | | | +--------+ + + + [...]
--- OUTSIDE RECORDS SUMMARY | ~2020-01-02 | XMS | Encounter Summary ---
Demographics + + + | Address | [address] | | | [place] [address] | + + + | Home Phone | | + + + | Preferred Language | Unknown | + + + | Marital Status | | + + + | Zoroastrian Affiliation | Unknown | + + + [...] Team Providers + +------+ + | Care Service Center Representative Name | Role | Phone | + [...] disorder | | 2018 | Visit | [facility] | E, DO [address] | (Primary Dx); | | | | MEDICAL CLIN[facility] | [place] | Alcohol dependence | | | | [address] [place], | [address] | in remission (HCC) | | | | [place] [address] | [phone] | | | | | [phone] | | | +--------+---------+ + + + [...] Jeffery Anand DO [place], November M, [facility] - 04/09/2018 4:20 PM PDTPasaul Word [...]
--- OUTSIDE RECORDS SUMMARY | ~2020-01-02 | XMS | Encounter Summary ---
Demographics + + + | Address | [address] | | | [place] [address] | + + + | Home Phone | | + + + | Preferred Language | Unknown | + + + | Marital Status | | + + + | Protestant Affiliation | Unknown | + + + | Race | Unknown | + + + | Ethnic Group | Unknown | + + + Author + + + | Author | [facility] | | | and [place] | + + + | Organization | [facility] | | | and [...] Team Providers + +------+ + | Care Hatchery Laborer Name | Role | Phone | + [...] | | [place] | [place] [address] | | | | | [address] | | | | | | [phone] | | | +--------+ + + + [...]
--- OUTSIDE RECORDS SUMMARY | ~2020-01-02 | XMS | Encounter Summary ---
Demographics + + + | Address | [address] | | | [place] [address] | + + + | Home Phone | | + + + | Preferred Language | Unknown | + + + | Marital Status | | + + + | Quaker Affiliation | Unknown | + + + | Race | Unknown | + + + | Ethnic Group | Unknown | + + + Author + + + | Author | [facility] | | | and [place] | + + + | Organization | [facility] | | | [...] Team Providers + +------+ + | Care Host Name | Role | Phone | + [...] Therapy | Lumbar | Maria Ines | [facility] | | | Required | | radiculopath | VANCE Cruz | PHYSICAL | | | | | y Bulge of | [address] | | | | | lumbar disc | [address] | [address] | | | | | without | STREET | [place], [place] | | | | | myelopathy | [facility] [address] | [address] | | | | | | [place], | Phone: | | | | | | [place] [address] | [phone] | | | | | | Phone: | Fax: | | | | | | [phone] | [phone] | | | | | | Fax: | | | | | | | [phone] | | +--------+ + + + + [...] | | | | | lumbar | [address] | [address] Phone: | | | | | | Phone: | [phone] | | | | | | [phone] | Fax: | | | | | | Fax: | [phone] | | | | | | [phone] | | +--------+ + + + + [...] | without myelopathy | | | | [address] | [address] | | | | | [phone] | | | +--------+---------+ + + + [...] PT orders are being sent to [facility]. 2. If her pain escalates please [...] survey about your pain. Date Last Reviewed: 01/12/201819990077-9291 [employer] [address] [place] [address]. All righ ts reserved. This information is not intended as a substitute for professional medical care. Always follow your healthcare professional's instructions. documented in this encounter Progress Notes Maria Ines Moeller PA-C - 05/16/2019 8:00 AM PDTFormatting of this note might be diffe rent from the original. Paola Moeller PA-C [address] [facility], [address] [place] [address] PHONE: FAX: PHYSIATRY HISTORY AND PHYSICAL EXAMINATION CHIEF COMPLAINT: Chief Complaint Patient presents with New Patient DDD, lumbar HISTORY OF PRESENT ILLNESS: The patient is a 43 y.o. male with the complaint of back sympt oms that began Jun 2018. The patient describes symptom onset following pulling toy chest ac [facility]. The symptoms have been gradually worsening He rates the pain as mild, moderate, and severe depending upon motion/activity. His curren t pain is rated a 1 2/10. His pain prior to ny 2019 with 8/10 . The symptoms are [...] Date Alcohol dependence in remission ([facility]) DDD (degenerative disc disease), lumbar Overanxious [...] has no apparent deficits with short or longwall shearer operator memory. Cranial nerves 2-12 appear grossly intact. [...] has no apparent deficits with short or longwall shearer operator memory. CRANIAL NERVES: II: Acuity is intact. 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 Unfortunately Gary Sauceda continues to have significant [...] +--------+ + + | AMB REFERRAL TO [facility] | Outpatient | Routin | Lumbar [...]
--- OUTSIDE RECORDS SUMMARY | ~2020-01-02 | XMS | Encounter Summary ---
Demographics + + + | Address | [address] | | | [place] [address] | + + + | Home Phone | | + + + | Preferred Language | Unknown | + + + | Marital Status | | + + + | Orthodox Affiliation | Unknown | + + + | Race | Unknown | + + + | Ethnic Group | Unknown | + + + Author + + + | Author | [facility] | | | and [place] | + + + | Organization | [facility] | | | [...] Providers + +------+ + | Care Director Television Name | Role | Phone | + +------+ + | Jeffery Anand DO | PCP | | + +------+ + Reason for Visit + + + | Reason | Comments | + + + | Follow-up | Follow up of medication, low back since Thanksgiving 2017 | + + + Encounter Details +--------+---------+ + + + | Date | Type | Department | Care Team | Description | +--------+---------+ + + + | 10/29/ | Office | [facility] | Jeffery Anand | DDD (degenerative | | 2019 | Visit | [facility] | E, DO [address] | disc disease), | | | | MEDICAL CLINIC [address] | [place], [place] | lumbar (Primary Dx); | | | | [address] [place], | [address] | Alcohol dependence | | | | [place] [address] | [phone] | in remission (HCC) | | | | [phone] | | | +--------+---------+ + + + [...] + + + | Blood Pressure | 126/70 | 10/29/2018 3:35 PM | | | | | PDT | | + + + + + | Pulse | 68 | 10/29/2018 3:35 PM | | | [...] | Weight | 74.5 kg (164 lb 3.2 | 10/29/2018 3:35 PM | | | | oz) | PDT | | + + + + + | Height | 165.1 cm (5' 5") | 10/29/2018 3:35 PM | | | | | PDT | | + + + + + | Body Mass Index | 27.32 | 10/29/2018 3:35 PM | | | | | PDT | | + + + + + documented in this encounter Progress Notes Jeffery Anand DO - 10/29/2018 3:30 PM PDT Patient ID: Gary Sauceda is a 43 y.o. year old male Chief Complaint Patient presents with Follow-up Follow up of medication, low back since 2017 Assessment: DDD (degenerative disc disease), lumbar (Primary) - Meloxicam; Take 1 tablet by mouth Daily as needed for Pain. Dispense: 30 tablet; Ref ill: 1 - tiZANidine HCl; Take 1 tablet by mouth nightly as needed. Dispense: 30 tablet; Refil l: 0 Alcohol dependence in remission (HCC) Plan: -Take Meloxicam 15 mg daily -Take Tizanidine 4 mg at bedtime PRN -DO NOT take Advil, Aleve, or Ibuprofen -Okay to use Tylenol -Continue massage therapy, I recommend Sikhism Massage -Follow up via phone or mychart in 1 month with update on back pain Subjective: ELLEN Vega presents to the clinic today to follow up regarding low back pain. He is doing good mentally. He is currently not drinking anymore. He just wants meaningful c onversation with people. He has shut himself off social media, he is tired of the drama and politics. Around he was bent over twisting. The back was tight, then got tighter and the n his back went out. He went to the chiropractor and was adjusted. Dr. Ocampo said to talk t o me, there was no more adjustment that can be done. He was getting pulsating pain down the left leg. That had gotten better over the past couple months. He has been stretching at home . He was in 2-3 weeks ago for massage therapy. It has not effected his bowel or bladder. He is using antiinflammatory 3-4 times a week, Tylenol, and laying down. He can not turn in bed . He has no history of surgery, or injections in his low back. Discussion what the next options are. We can try antiinflammatory and muscle relaxer for a period. If not working we can discuss MRI. Current Outpatient Prescriptions Medication Sig Dispense Refill Acetaminophen (TYLENOL EXTRA STRENGTH PO) Take by mouth as needed. DiphenhydrAMINE HCl (BENADRYL ALLERGY PO) Take by mouth as needed. gabapentin (NEURONTIN) 100 mg capsule Take 1 capsule by mouth 2 times daily. 180 capsul e 1 Naproxen Sodium (ALEVE) 220 MG CAPS Take by mouth. 1 tablet four times a week No current facility-administered medications for this visit. Review of Systems Constitutional: Feeling well, mentally is doing good. Musculoskeletal: Positive for back pain (with radiating pain down outside of left leg). Objective: Vitals: BP 126/70 | Pulse 68 | Resp 17 | Ht 1.651 m (5' 5") | Wt 74.5 kg (164 lb 3.2 oz) | SpO 2 98% | BMI 27.32 kg/m Physical Exam Constitutional: He is oriented to person, place, and time. He appears well-developed and we ll-nourished. No distress. Eyes: EOM are normal. Pulmonary/Chest: Effort normal. Abdominal: Bowel sounds are normal. Musculoskeletal: Right leg better then left leg for balance. Normal strength bilateral legs. Negative straig ht leg bilaterally. Neurological: He is alert and oriented to person, place, and time. Reflex Scores: Bicep reflexes are 3+ on the right side and 3+ on the left side. Patellar reflexes are 3+ on the right side and 3+ on the left side. Achilles reflexes are 3+ on the right side and 3+ on the left side. Psychiatric: He has a normal mood and affect. Entered by Rosa Padron CMSP, acting as scribe for Moisés Anand D.O. The documentation recorded by the scribe accurately reflects the service I personally perfo [facility] and the decisions made by me. documented in this encounter Plan of Treatment Not on filedocumented as of this encounter Visit Diagnoses + + | Diagnosis | + + | DDD (degenerative disc disease), lumbar - Primary Degeneration of lumbar or | | lumbosacral intervertebral disc | + + | Alcohol dependence in remission (HCC) Other and unspecified alcohol dependence, in | | remission | + + documented in this encounter
--- OUTSIDE RECORDS SUMMARY | ~2020-01-02 | XMS | Encounter Summary ---
Demographics + + + | Address | [address] | | | [place] [address] | + + + | Home Phone | | + + + | Preferred Language | Unknown | + + + | Marital Status | | + + + | Hoahaoism Affiliation | Unknown | + + + | Race | Unknown | + + + | Ethnic Group | Unknown | + + + Author + + + | Author | [facility] | | | and [place] | + + + | Organization | [facility] | | | and [...] Team Providers + +------+ + | Care Hogshead Stripper Name | Role | Phone | + [...] | | | | | lumbar | [address] | [address] Phone: | | | | | | Phone: | [phone] | | | | | | [phone] | Fax: | | | | | | Fax: | [phone] | | | | | | [phone] | | +--------+ + + + + [...] Medication Refill; | | 2018 | | [facility] | E, DO [address] | Referral | | | | MEDICAL CLIN[facility] [address] | [place], [place] | | | | | [address] [place], | [address] | | | | | [place] [address] | [phone] | | | | | [phone] | | | +--------+--------+ + + + [...]
--- OUTSIDE RECORDS SUMMARY | ~2020-01-02 | XMS | Encounter Summary ---
Demographics + + + | Address | [address] | | | [place] [address] | + + + | Home Phone | | + + + | Preferred Language | Unknown | + + + | Marital Status | | + + + | Restorationist Affiliation | Unknown | + + + | Race | Unknown | + + + | Ethnic Group | Unknown | + + + Author + + + | Author | [facility] | | | and [place] | + + + | Organization | [facility] | | | [...] Team Providers + +------+ + | Care Financial Internship Name | Role | Phone | + [...] | | [address] [place], | [address] | | | | | [place] [address] | [phone] | | | | | [phone] | | | +--------+--------+ + + + [...]
--- OUTSIDE RECORDS SUMMARY | ~2020-01-02 | XMS | Encounter Summary ---
Demographics + + + | Address | [address] | | | [place] [address] | + + + | Home Phone | | + + + | Preferred Language | Unknown | + + + | Marital Status | | + + + | Jain Affiliation | Unknown | + + + | Race | Unknown | + + + | Ethnic Group | Unknown | + + + Author + + + | Author | [facility] | | | and [place] | + + + | Organization | [facility] | | | [...] Team Providers + +------+ + | Care Ip Paralegal Name | Role | Phone | + [...] | | | [address] [place], | [address] | | | | | [place] [address] | [phone] | | | | | [phone] | | | +--------+ + + + [...]
--- OUTSIDE RECORDS SUMMARY | ~2020-01-02 | XMS | Encounter Summary ---
Demographics + + + | Address | [address] | | | [place] [address] | + + + | Home Phone | | + + + | Preferred Language | Unknown | + + + | Marital Status | | + + + | Anglican Affiliation | Unknown | + + + [...] Team Providers + +------+ + | Care Franchise Broker Name | Role | Phone | + [...] Specialty | Physical | Diagnoses | [facility] | | | Services | Therapy | DDD | Jeffery Das, | HOSPITAL | | | Required | | (degenerativ | DO [address] | | | | | e disc | [address] [place] | [place] | | | | | disease), | [place], [place] | [place], [place] | | | | | lumbar | [address] | [address] | | | | | | Phone: | Phone: | | | | | | [phone] | [phone] | | | | | | Fax: | Fax: | | | | | | [phone] | [phone] | +--------+ + + + + + [...] | Results | | 2019 | | [facility] | [facility] | | | | | MEDICAL CLIN[facility] [address] | | | | | | [address] [place], | | | | | | [place] [address] | | | | | | [phone] | | | +--------+ + + + [...]
--- OUTSIDE RECORDS SUMMARY | ~2020-01-02 | XMS | Encounter Summary ---
Demographics + + + | Address | [address] | | | [place] [address] | + + + | Home Phone | | + + + | Preferred Language | Unknown | + + + | Marital Status | | + + + | Druze Affiliation | Unknown | + + + [...] Team Providers + +------+ + | Care Transfer Pumper Name | Role | Phone | + [...] | | [address] [place], | [address] | | | | | [place] [address] | [phone] | | | | | [phone] | | | +--------+--------+ + + + [...]
--- OUTSIDE RECORDS SUMMARY | ~2020-01-02 | XMS | Encounter Summary ---
Demographics + + + | Address | [address] | | | [place] [address] | + + + | Home Phone | | + + + | Preferred Language | Unknown | + + + | Marital Status | | + + + | Worship Affiliation | Unknown | + + + [...] Team Providers + +------+ + | Care Machine Brusher Name | Role | Phone | + [...] | [facility] | [address] | | | | | IMAGING [address] | [address] | | | | | [address] | [place] [address] | | | | | [place] [address] | | | | | | [phone] | | | +--------+ + + + [...]
--- OUTSIDE RECORDS SUMMARY | ~2020-01-02 | XMS | Encounter Summary ---
Demographics + + + | Address | [address] | | | [place] [address] | + + + | Home Phone | | + + + | Preferred Language | Unknown | + + + | Marital Status | | + + + | Restorationist Affiliation | Unknown | + + + | Race | Unknown | + + + | Ethnic Group | Unknown | + + + Author + + + | Author | [facility] | | | and [place] | + + + | Organization | [facility] | | | and [...] Team Providers + +------+ + | Care Veterinarian Laboratory Animal Care Name | Role | Phone | + +------+ + | Jeffery Anand DO | PCP | | + +------+ + Reason for Referral Diagnostic/Screening (Routine) +--------+--------+ + + + + | Status | Reason | Specialty | Diagnoses / | Referred By | Referred To | | | | | Procedures | Contact | Contact | +--------+--------+ + + + + | Closed | | | Diagnoses | [facility] | [facility] | | | | | DDD | Jeffery Das, | HOSPITAL | | | | | (degenerativ | DO [address] | | | | | e disc | [address] [place] | [place] | | | | | disease), | [place], [place] | [place], [place] | | | | | lumbar | [address] | [address] | | | | | Procedures | Phone: | Phone: | | | | | MRI Lumbar | [phone] | [phone] | | | | | Spine w wo | Fax: | Fax: | | | | | Contrast | [phone] | [phone] | +--------+--------+ + + + + Reason for Visit + + + | Reason | Comments | + + + | MRI Recommendation | | + + + Encounter Details +--------+ + + + + | Date | Type | Department | Care Team | Description | +--------+ + + + + | 10/30/ | Telephone | [facility] | Jeffery Anand | MRI Recommendation | | 2019 | | [facility] | E, DO [address] | | | | | MEDICAL CLINIC [address] | [place], [place] | | | | | [address] [place], | [address] | | | | | [place] [address] | [phone] | | | | | [phone] | | | +--------+ + + + [...] of this encounter Plan of Treatment + +---------+--------+ + + | Name | Type | Priori | Associated Diagnoses | Order Schedule | | | | ty | | | + +---------+--------+ + + | MRI Lumbar Spine w | Imaging | Routin | DDD (degenerative | Expected: | | wo Contrast | | e | disc disease), | 10/30/2018, Expires: | | | | | lumbar | 10/31/2019 | + +---------+--------+ + + documented as of this encounter Visit Diagnoses + + | Diagnosis | + + | DDD (degenerative disc disease), lumbar - Primary Degeneration of lumbar or | | lumbosacral intervertebral disc | + + documented in this encounter"
--- OUTSIDE RECORDS SUMMARY | ~2020-01-02 | XMS | Encounter Summary ---
Demographics + + + | Address | [address] | | | [place] [address] | + + + | Home Phone | | + + + | Preferred Language | Unknown | + + + | Marital Status | | + + + | Amish Affiliation | Unknown | + + + | Race | Unknown | + + + | Ethnic Group | Unknown | + + + Author + + + | Author | [facility] | | | and [place] | + + + | Organization | [facility] | | | [...] Team Providers + +------+ + | Care Aluminum Boat Inspector Name | Role | Phone | + [...] (degenerative | | 2019 | Visit | [facility] | E, DO [address] | disc disease), | | | | MEDICAL CLIN[facility] [address] | [place], [place] | lumbar (Primary Dx); | | | | [address] [place], | [address] | Alcohol dependence | | | | [place] [address] | [phone] | in remission (HCC) | | | | [phone] | | | +--------+---------+ + + + [...] use Tylenol -Continue massage therapy, I recommend Congregational Massage -Follow up via phone or mychart [...] accurately reflects the service I personally perfo [facility] and the decisions made by me. documented [...]
--- OUTSIDE RECORDS SUMMARY | ~2020-01-02 | XMS | Encounter Summary ---
Demographics + + + | Address | [address] | | | [place] [address] | + + + | Home Phone | | + + + | Preferred Language | Unknown | + + + | Marital Status | | + + + | Restorationist Affiliation | Unknown | + + + | Race | Unknown | + + + | Ethnic Group | Unknown | + + + Author + + + | Author | [facility] | | | and [place] | + + + | Organization | [facility] | | | [...] Team Providers + +------+ + | Care Procedures Tech Name | Role | Phone | + [...] | | | [address] [place], | [address] | | | | | [place] [address] | [phone] | | | | | [phone] | | | +--------+ + + + [...]
--- OUTSIDE RECORDS SUMMARY | ~2020-01-02 | XMS | Encounter Summary ---
Demographics + + + | Address | [address] | | | [place] [address] | + + + | Home Phone | | + + + | Preferred Language | Unknown | + + + | Marital Status | | + + + | Jew Affiliation | Unknown | + + + | Race | Unknown | + + + | Ethnic Group | Unknown | + + + Author + + + | Author | [facility] | | | and [place] | + + + | Organization | [facility] | | [...] Team Providers + +------+ + | Care Data Center Architect Name | Role | Phone | + [...] | | | [address] [place], | [address] | | | | | [place] [address] | [phone] | | | | | [phone] | | | +--------+ + + + [...]
--- OUTSIDE RECORDS SUMMARY | ~2020-01-02 | XMS | Encounter Summary ---
Demographics + + + | Address | [address] | | | [place] [address] | + + + | Home Phone | | + + + | Preferred Language | Unknown | + + + | Marital Status | | + + + | Roman Catholic Affiliation | Unknown | + + + | Race | Unknown | + + + | Ethnic Group | Unknown | + + + Author + + + | Author | [facility] | | | and [place] | + + + | Organization | [facility] | | | and [...] Team Providers + +------+ + | Care Front Desk Admin Name | Role | Phone | + [...] | | | | | lumbar | [address] | [address] | | | | | Procedures | Phone: | Phone: | | | | | MRI Lumbar | [phone] | [phone] | | | | | Spine w wo | Fax: | Fax: | | | | | Contrast | [phone] | [phone] | +--------+--------+ + + + + Reason [...] MRI Recommendation | | 2019 | | [facility] | E, DO [address] | | | | | MEDICAL CLINIC [address] | [place], [place] | | | | | [address] [place], | [address] | | | | | [place] [address] | [phone] | | | | | [phone] | | | +--------+ + + + [...]
--- OUTSIDE RECORDS SUMMARY | ~2020-01-02 | XMS | Encounter Summary ---
Demographics + + + | Address | [address] | | | [place] [address] | + + + | Home Phone | | + + + | Preferred Language | Unknown | + + + | Marital Status | | + + + | Mosque Affiliation | Unknown | + + + | Race | Unknown | + + + | Ethnic Group | Unknown | + + + Author + + + | Author | [facility] | | | and [place] | + + + | Organization | [facility] | | [...] Team Providers + +------+ + | Care Hourly Caregiver Name | Role | Phone | + [...] | | [address] [place], | [address] | | | | | [place] [address] | [phone] | | | | | [phone] | | | +--------+ + + + [...]
[2020-01-02] MEDS ORDERED: GABAPENTIN100 MG PO (08:10)
[2020-01-02] MEDS ORDERED: HYDROXYZINE HCL25 MG PO (10:10)
[2020-01-02] MEDS ORDERED: LEXAPRO10 MG PO (10:10)
[2020-01-02] MEDS ORDERED: ONDANSETRON ODT8 MG PO (10:10)
--- NOTE | 2020-01-02 12:07 | EKG ---
[facility] [address] [place] [address] Signed Normal sinus rhythm with sinus arrhythmia Prolonged QT Abnormal ECG No previous ECGs available Confirmed by PIPE GTZ MD ([id number]) on 01/02/2020 12:07:02 PM Electronically Signed By: PIPE GTZ MD 01/02/20 1207 PATIENT NAME: CORNELIUS ORTIZ Electrocardiogram DATE OF : 79 PHYSICIAN: PIPE GTZ MD REPORT #: [id number] REPORT IS CONFIDENTIAL AND NOT TO BE RELEASED WITHOUT AUTHORIZATION
== END 2020-01-02 10:20 | disposition home or self-care (01) ==
LOC: ED 07:58
DX: F41.9 Anxiety disorder, unspecified (principal); Z87.891 Personal history of nicotine dependence; Z79.899 Other long term (current) drug therapy
CPT/HCPCS: 80053; 84443; 84484; 85025; 93005; 93010; 99284-25

== ENCOUNTER 2020-11-30 15:24 | Emergency (ER) | payer BC, OTHER ==
[~2020-11-30] VITALS: Ht 170.2 cm; Wt 74.8 kg
[~2020-11-30 15:24] MED LIST: GABAPENTIN100 MG PO; HYDROXYZINE HCL25 MG PO; LEXAPRO10 MG PO; ONDANSETRON ODT8 MG PO
== END 2020-11-30 17:04 | disposition home or self-care (01) ==
LOC: ED 15:24
DX: R39.11 Hesitancy of micturition (principal); F41.9 Anxiety disorder, unspecified; Z87.891 Personal history of nicotine dependence; Z88.8 Allergy status to other drugs, medicaments and biological substances; Z79.899 Other long term (current) drug therapy
CPT/HCPCS: 51798; 81001; 99283-25